=== PATIENT | male | born 1975 | race Caucasian/White ===

== ENCOUNTER 2017-06-04 14:58 | Emergency (ER) | payer SELFPAY ==
[~2017-06-04] VITALS: Ht 180.3 cm; Wt 121.0 kg
[~2017-06-04 14:58] MED LIST: ALPR0.5T99 PO; BACL10TA PO; BUSP10TA8 PO; CYMB60CA PO; DICL75 PO; METO50TA PO; SOMA350T PO; TRAM50 PO
[2017-06-04 15:11] VITALS: BP 146/90; PULSE 75; RESP 16; TEMP 97.7; O2SAT 97
[2017-06-04] MEDS ORDERED: TRAM50TA PO (15:25)
[2017-06-04] MEDS ORDERED: ALPR.5 PO (15:25)
[2017-06-04] MEDS ORDERED: NEUR100C PO (15:25)
[2017-06-04] MEDS ORDERED: BUTR5DIS T-DERMAL (15:26)
[2017-06-04] MEDS ORDERED: LOSA25TA PO (15:26)
[2017-06-04] MEDS ORDERED: METO25TA3 PO (15:26)
--- NOTE | 2017-06-04 15:45 | PD ---
HPI Chief Complaint: Musculoskeletal Complaint Time Seen by Provider: 15:34 Travel History International Travel<30 days: No Contact w/Intl Traveler<30days: No Traveled to known affect area: No History of Present Illness HPI 41-year-old male with history of tremors, fibromyalgia, neuropathy, and chronic back pain presents to the emergency room for evaluation of left lower extremity pain that started last night. Patient denies trauma or injury. States pain is difficult to localize. It starts in the bottom of his foot and radiates upward into the back of his calf. He reports slightly worsening paresthesias than normal. He is concerned for DVT because he has been developing small varicose veins over the past 24 hours. Denies recent immobilization, surgery, history of PE or DVT, or active cancer. Patient takes gabapentin, Butrans patch, Xanax , tramadol, metoprolol, and losartan. 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) Allergies-Medications (Allergen,Severity, Reaction): Coded Allergies: pregabalin (Unverified Adverse Reaction, Severe, STS SEVERE MOOD SWINGS, 06/04/17) Reported Meds & Prescriptions Reported Meds & Active Scripts Active Reported Butrans Patch 168 HR (Buprenorphine Patch 168 HR) 5 Mcg/Hr Patch 1 Patch T- DERMAL Q7D Metoprolol Tartrate 25 Mg Tab 25 Mg PO BID Losartan (Losartan Potassium) 25 Mg Tab 12.5 Mg PO DAILY Neurontin (Gabapentin) 100 Mg Cap 100 Mg PO TID Tramadol (Tramadol HCl) 50 Mg Tab 50 Mg PO Q6H PRN Xanax (Alprazolam) 0.5 Mg Tab 0.5 Mg PO Q6H PRN Review of Systems Except as stated in HPI: all other systems reviewed are Neg Physical Exam Narrative GENERAL: Well-nourished, well-developed male in no acute distress. Afebrile. Ambulatory. SKIN: Focused skin assessment warm/dry. Mild varicose veins of the left lower extremity. HEAD: Normocephalic. EYES: No scleral icterus. No injection or drainage. NECK: Supple, trachea midline. No JVD or lymphadenopathy. CARDIOVASCULAR: Regular rate and rhythm without murmurs, gallops, or rubs. RESPIRATORY: Breath sounds equal bilaterally. No accessory muscle use. MUSCULOSKELETAL: No cyanosis. No significant edema. Full range of motion. 2+ dorsalis pedis pulse. Denies tenderness to palpation of the left lower extremity. Data Data Last Documented VS Vital Signs Date Time Temp Pulse Resp B/P (MAP) Pulse Ox O2 Delivery O2 Flow Rate FiO2 06/04/17 15:11 97.7 75 16 146/90 (108) 97 Orders Orders Us Leg Venous Doppler (06/04/17 ) [facility] Medical Decision Making Medical Screen Exam Complete: Yes Emergency Medical Condition: Yes Medical Record Reviewed: Yes Differential Diagnosis DVT, chronic pain, fibromyalgia, neuropathy, radiculopathy Narrative Course 41-year-old male presents to the emergency room for evaluation of left lower leg pain and new onset varicose veins that started the past 2 days. Patient denies trauma or injury. Physical exam reveals no significant edema but worse varicose veins on the left than on the right. There is generalized tenderness to palpation of left leg. No erythema or ecchymosis. 2+ dorsalis pedis pulse and full range motion. Patient is ambulatory. Ultrasound shows no DVT. Patient was told to follow up with his primary care physician for repeat ultrasound in 1 week if symptoms persist. She was discharged with prescription for ibuprofen and told to return for worsening symptoms. He understands and agrees to plan. Diagnosis Primary Impression: Left leg pain Referrals: Primary Care Physician Additional Instructions: Rest and drink plenty of fluids. Take ibuprofen with food as directed, as needed for pain. Apply ice to the affected area for 20 minutes at a time, as needed for pain and swelling. Follow-up with a primary care physician. Return to the emergency room for worsening symptoms. Disposition: 01 DISCHARGE HOME Condition: Stable Yasmeen Lynn Jun 04, 2017 15:45
--- NOTE | 2017-06-04 17:00 | RADRPT ---
EXAM DATE/TIME: 06/04/2017 16:29 [place] COMPARISON: No previous studies available for comparison. INDICATIONS : Left leg pain. MEDICAL HISTORY : Fibromyalgia. Chronic fatigue. Anxiety. SURGICAL HISTORY : Right hand tendon repair. ENCOUNTER: Initial ACUITY: 1 day PAIN SCORE: 6/10 LOCATION: Left leg. TECHNIQUE: Venous ultrasound of the leg was performed from the inguinal ligament to the proximal calf. Real-zander e, color Doppler and spectral tracing, compression and augmentation techniques were used. FINDINGS: There is normal compressibility of the deep venous system from the inguinal region to the proximal ca lf. No echogenic clot is seen in the lumen of the common femoral, femoral, popliteal, and posterior tibial veins. There is a normal response of the venous system to proximal and distal augmentation an d respiration. CONCLUSION: Normal examination. Derek Dai MD on June 04, 2017 at 16:59 Board Certified Radiologist. This report was verified electronically.
[2017-06-04] MEDS ORDERED: IBUP-232 PO (17:13)
== END 2017-06-04 17:22 | disposition home or self-care (01) ==
LOC: PHEFT 14:58
DX: M79.605 Pain in left leg (principal); M79.7 Fibromyalgia; F17.210 Nicotine dependence, cigarettes, uncomplicated
CPT/HCPCS: 93971; 99284

== ENCOUNTER 2017-12-16 12:53 | Emergency (ER) | payer OTHER ==
[~2017-12-16] VITALS: Ht 177.8 cm; Wt 117.8 kg
[~2017-12-16 12:53] MED LIST changes: +ALPR.5 PO; -ALPR0.5T99 PO; -BACL10TA PO; -BUSP10TA8 PO; +BUTR5DIS T-DERMAL; -CYMB60CA PO; -DICL75 PO; +IBUP-232 PO; +LOSA25TA PO; +METO25TA3 PO; -METO50TA PO; +NEUR100C PO; -SOMA350T PO; -TRAM50 PO; +TRAM50TA PO
[2017-12-16 13:14] VITALS: BP 160/107; PULSE 85; RESP 16; TEMP 96.9; O2SAT 97
[2017-12-16] MEDS ORDERED: VENL75TA PO (14:21)
[2017-12-16] MEDS ORDERED: METH500T3 PO (14:25)
[2017-12-16] MEDS ORDERED: ONDANSETRON HCL 4 MG/2 ML VIAL IVP ONE (14:30)
[2017-12-16] MEDS ORDERED: SODIUM CHLORIDE 0.9% FLUSH 10 ML FLUSH IVF PRN (14:30)
--- NOTE | 2017-12-16 14:38 | PD ---
HPI Chief Complaint: GI Complaint Time Seen by Provider: 14:15 Travel History International Travel<30 days: No Contact w/Intl Traveler<30days: No Traveled to known affect area: No History of Present Illness HPI This patient complains of some bright red blood per rectum. He had some 3 days ago but none since. No history of GI bleed. Denies alcohol or drug abuse. He is on chronic pain medicine for his back. He takes a pain patch and tramadol and is also on Xanax. Complains of some nausea but no vomiting or diarrhea or fever or abdominal pain. Symptom severity is moderate. No alleviating factors. No exacerbating factors. 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) Allergies-Medications (Allergen,Severity, Reaction): Coded Allergies: pregabalin (Unverified Adverse Reaction, Severe, STS SEVERE MOOD SWINGS, ) Reported Meds & Prescriptions Reported Meds & Active Scripts Active Ibuprofen 600 Mg Tab 600 Mg PO Q8HR PRN Reported Methocarbamol 500 Mg Tab 1,000 Mg PO QID Effexor (Venlafaxine HCl) 75 Mg Tab 150 Mg PO DAILY Butrans Patch 168 HR (Buprenorphine Patch 168 HR) 5 Mcg/Hr Patch 1 Patch T- DERMAL Q7D Metoprolol Tartrate 25 Mg Tab 25 Mg PO BID Losartan (Losartan Potassium) 25 Mg Tab 12.5 Mg PO DAILY Neurontin (Gabapentin) 100 Mg Cap 100 Mg PO TID Tramadol (Tramadol HCl) 50 Mg Tab 50 Mg PO Q6H PRN Xanax (Alprazolam) 0.5 Mg Tab 0.5 Mg PO Q6H PRN Review of Systems General / Constitutional: No: Fever Eyes: No: Visual changes HENT: No: Headaches Cardiovascular: No: Chest Pain or Discomfort Respiratory: No: Shortness of Breath Gastrointestinal: Positive: Nausea, Hematochezia, No: Abdominal Pain Genitourinary: No: Dysuria Musculoskeletal: Positive: Pain Skin: No Rash Neurologic: No: Weakness Psychiatric: No: Depression Endocrine: No: Polydipsia Hematologic/Lymphatic: No: Easy Bruising Physical Exam Narrative GENERAL: Well-nourished, well-developed patient in no apparent distress. SKIN: Focused skin assessment reveals no rash and nodules. Skin is Warm and dry. HEAD: Atraumatic. Normocephalic. EYES: Pupils equal and round. No scleral icterus. No injection or drainage. ENT: No nasal bleeding or discharge. Mucous membranes pink and moist. NECK: Trachea midline. No JVD. CARDIOVASCULAR: Regular rate and rhythm. No murmur appreciated. RESPIRATORY: No accessory muscle use. Clear to auscultation. Breath sounds equal bilaterally. GASTROINTESTINAL: Abdomen soft, non-tender, nondistended. Hepatic and splenic margins not palpable. MUSCULOSKELETAL: No obvious deformities. No clubbing. No cyanosis. No edema. NEUROLOGICAL: Awake and alert. No obvious cranial nerve deficits. Motor grossly within normal limits. Normal speech. PSYCHIATRIC: Appropriate mood and affect; insight and judgment normal. Rectal: No external hemorrhoid or fissure seen Data Data Last Documented VS Vital Signs Date Time Temp Pulse Resp B/P (MAP) Pulse Ox O2 Delivery O2 Flow Rate FiO2 12/16/17 17:49 63 16 100/55 (70) 97 Room Air 12/16/17 13:14 96.9 Orders Orders Basic Metabolic Panel (Bmp) (12/16/17 14:25) Complete Blood Count With Diff (12/16/17 14:25) Prothrombin Time / Inr (Pt) (12/16/17 14:25) Act Partial Throm Time (Ptt) (12/16/17 14:25) Iv Access Insert/Monitor (12/16/17 14:25) Ondansetron Inj (Zofran Inj) (12/16/17 14:30) Sodium Chloride 0.9% Flush (Ns Flush) (12/16/17 14:30) Labs Laboratory Tests Test 12/16/17 14:45 White Blood Count 8.0 TH/MM3 Red Blood Count 5.26 MIL/MM3 Hemoglobin 15.6 GM/DL Hematocrit 46.0 % Mean Corpuscular Volume 87.4 FL Mean Corpuscular Hemoglobin 29.7 PG Mean Corpuscular Hemoglobin Concent 34.0 % Red Cell Distribution Width 13.2 % Platelet Count 255 TH/MM3 Mean Platelet Volume 8.1 FL Neutrophils (%) (Auto) 48.3 % Lymphocytes (%) (Auto) 37.9 % Monocytes (%) (Auto) 5.8 % Eosinophils (%) (Auto) 6.6 % Basophils (%) (Auto) 1.4 % Neutrophils # (Auto) 3.9 TH/MM3 Lymphocytes # (Auto) 3.0 TH/MM3 Monocytes # (Auto) 0.5 TH/MM3 Eosinophils # (Auto) 0.5 TH/MM3 Basophils # (Auto) 0.1 TH/MM3 CBC Comment DIFF FINAL Differential Comment Prothrombin Time 9.8 SEC Prothromb Time International Ratio 1.0 RATIO Activated Partial Thromboplast Time 29.5 SEC Blood Urea Nitrogen 18 MG/DL Creatinine 0.97 MG/DL Random Glucose 106 MG/DL Calcium Level 9.4 MG/DL Sodium Level 138 MEQ/L Potassium Level 4.1 MEQ/L Chloride Level 104 MEQ/L Carbon Dioxide Level 26.5 MEQ/L Anion Gap 8 MEQ/L Estimat Glomerular Filtration Rate 86 ML/MIN MDM Medical Decision Making Medical Screen Exam Complete: Yes Emergency Medical Condition: Yes Medical Record Reviewed: Yes Differential Diagnosis Internal hemorrhoid, diverticular bleed, AV malformation Narrative Course I have reviewed the patient's electronic medical record. IV placed and labs sent Abdomen is soft and benign and nontender CBC is normal with hemoglobin that is at the top of the normal range Metabolic studies are normal Coagulation studies are normal On recheck patient is doing well. Stable for outpatient GI follow-up for discussion of colonoscopy He will avoid aspirin and alcohol anti-inflammatories Diagnosis Primary Impression: Rectal bleeding Additional Impression: Nausea Additional Instructions: Follow-up with primary care and GI physician Med/Other Pt SpecificInfo: Other Disposition: 01 DISCHARGE HOME Condition: Stable Surinder Dyer MD Dec 16, 2017 14:38
[2017-12-16 14:52] LABS: AUTOMATED NEUTROPHIL # 3.9 TH/MM3 (1.8-7.7); BASOPHIL # 0.1 TH/MM3 (0-0.2); BASOPHIL % 1.4 % (0.0-2.0); EOSINOPHIL # 0.5 TH/MM3 (0-0.4); EOSINOPHIL % 6.6 % (0.0-4.0); HEMOGLOBIN 15.6 GM/DL (13.0-17.0); LYMPH % 37.9 % (9.0-44.0); MEAN CELL VOLUME 87.4 FL (80.0-100.0); MEAN CORPUSCULAR HEMOGLOBIN 29.7 PG (27.0-34.0); MEAN PLATELET VOLUME 8.1 FL (7.0-11.0); MONO % 5.8 % (0.0-8.0); MONOCYTE # 0.5 TH/MM3 (0-0.9); NEUT % 48.3 % (16.0-70.0); PLATELET COUNT 255 TH/MM3 (150-450); RED BLOOD COUNT 5.26 MIL/MM3 (4.50-5.90); RED CELL DISTRIBUTION WIDTH 13.2 % (11.6-17.2)
[2017-12-16 15:10] VITALS: BP 118/67; PULSE 66; RESP 18; O2SAT 97
[2017-12-16 15:14] LABS: BICARBONATE 26.5 MEQ/L (21.0-32.0); CALCIUM 9.4 MG/DL (8.5-10.1)
[2017-12-16 15:18] LABS: CREATININE 0.97 MG/DL (0.60-1.30); PROTHROMBIN TIME - PATIENT 9.8 SEC (9.8-11.6)
[2017-12-16 16:40] VITALS: BP 114/56; PULSE 57; RESP 18; O2SAT 96
[2017-12-16 17:49] VITALS: BP 100/55; PULSE 63; RESP 16; O2SAT 97
== END 2017-12-16 18:55 | disposition home or self-care (01) ==
LOC: PHED 12:53
DX: K62.5 Hemorrhage of anus and rectum (principal); R11.0 Nausea; F41.9 Anxiety disorder, unspecified; F32.9 Major depressive disorder, single episode, unspecified; I10 Essential (primary) hypertension; M79.7 Fibromyalgia; Z79.899 Other long term (current) drug therapy; Z88.8 Allergy status to other drugs, medicaments and biological substances
CPT/HCPCS: 80048; 85025; 85610; 85730; 96374; 99284; J2405